=== PATIENT | male | born 1950 | race Hispanic/Latino ===

== ENCOUNTER 2018-02-27 19:15 | Inpatient (IN) | payer MEDICARE ==
[~2018-02-27] VITALS: Ht 170.2 cm; Wt 76.1 kg
[2018-02-27] MEDS ORDERED: ACETAMINOPHEN EXTRA STRENGTH 500 MG TABLET ONE (19:49)
[2018-02-27] MEDS ORDERED: SODIUM CHLORIDE 0.9% 1000ML 1,000 ML IV ONE (19:49)
[2018-02-27 20:17] LABS: EOSINOPHILS % (AUTO) 0.8 % (0.0-8.0); HEMATOCRIT 34.9 % (42-54); LYMPHOCYTES % (AUTO) 30.3 % (21.0-51.0); MEAN CORPUSCULAR HEMOGLOBIN 30.1 pg (27.0-33.0); MEAN CORPUSCULAR HGB CONC 35.1 g/dL (32.0-36.0); MEAN CORPUSCULAR VOLUME 85.8 fL (79-99); MONOCYTES % (AUTO) 15.9 % (3.0-13.0); NUCLEATED RED BLOOD CELLS 0.1 % (0.0-0.19); PLATELET COUNT (AUTO) 333 K/uL (130-400); RED BLOOD CELL COUNT(AUTO) 4.06 MIL/uL (4.50-6.20); RED CELL DISTRIBUTION WIDTH 12.6 % (11.0-15.5); WHITE BLOOD COUNT (AUTO) 8.5 K/uL (4.8-10.8)
[2018-02-27 20:28] LABS: CREATININE 1.4 mg/dL (0.5-1.5); POTASSIUM 3.7 mmol/L (3.5-5.1)
[2018-02-27 20:32] LABS: PARTIAL THROMBOPLASTIN TIME 29.8 SEC (26.3-35.5); PROTHROMBIN TIME 10.3 SEC (9.6-11.6)
[2018-02-27] MEDS ORDERED: CEFTRIAXONE SODIUM 1 GM ONE (20:37)
[2018-02-27] MEDS ORDERED: AZITHROMYCIN 500MG+NS 250ML 250 ML IV ONE (20:37)
[2018-02-27 20:41] LABS: ALBUMIN 2.9 g/dL (3.5-5.0); BILIRUBIN,TOTAL 0.2 mg/dL (0.2-1.0); CREATINE KINASE MB 1.4 ng/mL (0.5-3.6); TOTAL PROTEIN, SERUM 8.8 g/dL (6.0-8.3)
[2018-02-27 20:58] LABS: APPEARANCE,URINE Cloudy (CLEAR); BILIRUBIN,URINE Small (NEGATIVE); COLOR,URINE Dark Yellow (YELLOW); GLUCOSE, URINE (UA) TRACE mg/dL (NEGATIVE); KETONES,URINE Trace mg/dL (NEGATIVE); LEUKOCYTE ESTERASE ,URINE Negative (NEGATIVE); NITRATE,URINE Negative (NEGATIVE); OCCULT BLOOD,URINE Small (NEGATIVE); PROTEIN,URINE 300 (NEGATIVE)
[2018-02-27 21:14] LABS: BACTERIA,URINE None Seen /HPF (None Seen); MUCUS,URINE Few LPF (None Seen); RBC,URINE 0-1 /HPF (0-1); SQUAMOUS EPITHELIAL CELL,UR 0-2 /HPF (0-2); WBC,URINE None Seen /HPF (0-1)
[2018-02-27] MEDS ORDERED: DEXTROSE 50%-WATER 50 ML DISP.SYRIN IV PRN (21:45)
[2018-02-27] MEDS ORDERED: POTASSIUM CHLORIDE 20MEQ/100ML 100 ML IV PRN (21:45)
[2018-02-27] MEDS ORDERED: ONDANSETRON HCL 4 MG/2 ML VIAL IVP PRN (21:45)
[2018-02-27] MEDS ORDERED: POTASSIUM CHLORIDE 10% ELIXIR 20 MEQ/15 ML UDCUP PO PRN (21:45)
[2018-02-27] MEDS ORDERED: GLUCAGON 1MG KIT 1 MG ML IM PRN (21:45)
[2018-02-27] MEDS ORDERED: POTASSIUM CHLORIDE 20 MEQ ERTAB PO PRN (21:45)
[2018-02-27] MEDS ORDERED: LIDOCAINE HCL-MPF 1% 2ML VIAL IVP PRN (21:45)
[2018-02-27 23:55] VITALS: BP 124/67
[2018-02-28] MEDS: GUAIFENESIN SUGAR-FREE 100 MG/5 ML UDCUP PO SCH ×5 (00:50→23:37)
[2018-02-28] MEDS ORDERED: SODIUM CHLORIDE 3% FOR INHALATION 4 ML/AMP VIAL.NEB IH ONE (02:21)
[2018-02-28 04:26] VITALS: BP 141/74
[2018-02-28 07:00] VITALS: BP 134/69
[2018-02-28] MEDS: INSULIN HUMULIN R 100 UNIT/ML 3ML SQ SCH ×4 (07:30→20:34)
[2018-02-28] MEDS ORDERED: CEFTRIAXONE 1GM/D5W 50ML 50 ML IV SCH ×2 (09:00→14:00)
[2018-02-28] MEDS ORDERED: AZITHROMYCIN 500MG+NS 250ML 250 ML IV SCH (09:00)
[2018-02-28 11:00] VITALS: BP 120/65
[2018-02-28] MEDS ORDERED: VANCOMYCIN PROTOCOL PER PHARMACY IV SCH (12:00)
[2018-02-28] MEDS ORDERED: VANCOMYCIN 1GM+NS 250ML 250 ML IV SCH (12:00)
[2018-02-28] MEDS ORDERED: MEROPENEM 1GM IVPB PREMIXED 1 GM IV SCH (12:00)
[2018-02-28] MEDS ORDERED: COMPOUND IV REFRIGERATED 1 EACH IVSOLN MISC PRN (12:45)
[2018-02-28] MEDS ORDERED: VANCOMYCIN 1.25 GM in SODIUM CHLORIDE 0.9% 250 ML IV SCH (13:00)
[2018-02-28] MEDS ORDERED: MEROPENEM 1 GM VIAL IVP SCH (13:00)
[2018-02-28] MEDS ORDERED: ISOVUE-370 50ML VIAL IV ONE (13:21)
[2018-02-28] MEDS ORDERED: DOXYCYCLINE HYCLATE 100 MG TABLET PO SCH (14:00)
[2018-02-28] MEDS: CEFTRIAXONE SODIUM 1 GM IVP SCH (15:52)
[2018-02-28 16:00] VITALS: BP 132/75
[2018-02-28 17:17] LABS: HEMATOCRIT 36.5 % (42-54); MEAN CORPUSCULAR HEMOGLOBIN 30.1 pg (27.0-33.0); MEAN CORPUSCULAR VOLUME 86.1 fL (79-99); PLATELET COUNT (AUTO) 356 K/uL (130-400); RED BLOOD CELL COUNT(AUTO) 4.24 MIL/uL (4.50-6.20); RED CELL DISTRIBUTION WIDTH 12.7 % (11.0-15.5); WHITE BLOOD COUNT (AUTO) 8.3 K/uL (4.8-10.8)
[2018-02-28 17:24] LABS: CREATININE 1.1 mg/dL (0.5-1.5); POTASSIUM 3.8 mmol/L (3.5-5.1)
[2018-02-28 19:00] VITALS: BP 122/70
[2018-02-28] MEDS: ACETAMINOPHEN 325 MG TAB PO PRN (20:44)
[2018-02-28 22:00] VITALS: BP 110/64
[2018-03-01] VITALS (7 sets, daily range): BP systolic 118–135; BP diastolic 65–76
[2018-03-01 05:11] LABS: HEMATOCRIT 35.3 % (42-54); MEAN CORPUSCULAR HEMOGLOBIN 29.9 pg (27.0-33.0); MEAN CORPUSCULAR VOLUME 85.3 fL (79-99); PLATELET COUNT (AUTO) 309 K/uL (130-400); RED BLOOD CELL COUNT(AUTO) 4.14 MIL/uL (4.50-6.20); RED CELL DISTRIBUTION WIDTH 12.7 % (11.0-15.5); WHITE BLOOD COUNT (AUTO) 9.3 K/uL (4.8-10.8)
[2018-03-01 05:22] LABS: CREATININE 1.1 mg/dL (0.5-1.5); MAGNESIUM 1.8 mg/dL (1.80-2.40); POTASSIUM 3.8 mmol/L (3.5-5.1)
[2018-03-01] MEDS: GUAIFENESIN SUGAR-FREE 100 MG/5 ML UDCUP PO SCH ×3 (05:29→18:22)
[2018-03-01] MEDS: INSULIN HUMULIN R 100 UNIT/ML 3ML SQ SCH ×4 (05:54→20:56)
[2018-03-01] MEDS ORDERED: SODIUM CHLORIDE 3% FOR INHALATION 4 ML/AMP VIAL.NEB IH ONE (09:15)
[2018-03-01] MEDS: RIFAMPIN 300 MG CAPSULE PO SCH (10:05)
[2018-03-01] MEDS: PYRIDOXINE HCL 50 MG TABLET PO SCH (10:05)
[2018-03-01] MEDS: ETHAMBUTOL HCL 400 MG TABLET PO SCH (10:06)
[2018-03-01] MEDS: PYRAZINAMIDE 500 MG TABLET PO SCH (10:06)
[2018-03-01] MEDS: ISONIAZID 300 MG TAB PO SCH (10:06)
[2018-03-01] MEDS ORDERED: MAGNESIUM 2GM PREMIX 50ML 50 ML IV SCH (17:30)
[2018-03-01] MEDS: CEFTRIAXONE SODIUM 1 GM IVP SCH (18:22)
[2018-03-01] MEDS: ACETAMINOPHEN 325 MG TAB PO PRN (20:52)
[2018-03-02] MEDS: GUAIFENESIN SUGAR-FREE 100 MG/5 ML UDCUP PO SCH ×4 (00:06→17:00)
[2018-03-02 04:15] VITALS: BP 117/71
[2018-03-02 04:17] LABS: ALBUMIN 2.4 g/dL (3.5-5.0); BILIRUBIN,DIRECT 0.2 mg/dL (0.0-0.3); BILIRUBIN,TOTAL 0.7 mg/dL (0.2-1.0); TOTAL PROTEIN, SERUM 8.1 g/dL (6.0-8.3)
[2018-03-02] MEDS ORDERED: SODIUM CHLORIDE 3% FOR INHALATION 4 ML/AMP VIAL.NEB IH ONE (06:03)
[2018-03-02] MEDS: INSULIN HUMULIN R 100 UNIT/ML 3ML SQ SCH ×4 (06:32→22:48)
[2018-03-02 07:30] VITALS: BP 119/73
[2018-03-02] MEDS: PYRIDOXINE HCL 50 MG TABLET PO SCH (10:47)
[2018-03-02] MEDS: RIFAMPIN 300 MG CAPSULE PO SCH (10:47)
[2018-03-02] MEDS: PYRAZINAMIDE 500 MG TABLET PO SCH (10:47)
[2018-03-02] MEDS: ISONIAZID 300 MG TAB PO SCH (10:47)
[2018-03-02] MEDS: ETHAMBUTOL HCL 400 MG TABLET PO SCH (10:47)
[2018-03-02] MEDS: ENOXAPARIN SODIUM 40 MG/0.4 ML SYRINGE SQ SCH (10:49)
[2018-03-02 11:00] VITALS: BP 102/68
[2018-03-02] MEDS: CEFTRIAXONE SODIUM 1 GM IVP SCH (12:39)
[2018-03-02] MEDS ORDERED: VANCOMYCIN PROTOCOL PER PHARMACY IV SCH (14:00)
[2018-03-02] MEDS ORDERED: CEFTAZIDIME 1GM+NS 50ML 50 ML IV SCH (14:00)
[2018-03-02 16:00] VITALS: BP 118/71
[2018-03-02] MEDS ORDERED: VANCOMYCIN 1.5 GM in SODIUM CHLORIDE 0.9% 250 ML IV SCH (16:00)
[2018-03-02] MEDS ORDERED: COMPOUND IV REFRIGERATED 1 EACH IVSOLN MISC PRN (16:00)
[2018-03-02] MEDS: CEFTAZIDIME PENTAHYDRATE 1 GM/VIAL IVP SCH ×2 (16:52→22:43)
[2018-03-02 20:14] VITALS: BP 128/71
[2018-03-02 23:30] VITALS: BP 132/79
[2018-03-03] MEDS: GUAIFENESIN SUGAR-FREE 100 MG/5 ML UDCUP PO SCH ×4 (00:09→17:28)
[2018-03-03] MEDS ORDERED: SODIUM CHLORIDE 3% FOR INHALATION 4 ML/AMP VIAL.NEB IH ONE (00:18)
[2018-03-03 04:05] VITALS: BP 136/72
[2018-03-03] MEDS: CEFTAZIDIME PENTAHYDRATE 1 GM/VIAL IVP SCH ×2 (06:19→15:21)
[2018-03-03] MEDS: INSULIN HUMULIN R 100 UNIT/ML 3ML SQ SCH ×4 (06:20→21:00)
[2018-03-03 08:00] VITALS: BP_SYST 130; BP_SYST 158; BP_DIAS 70; BP_DIAS 77
[2018-03-03] MEDS ORDERED: VANCOMYCIN 500MG+NS 100ML 100 ML IV SCH (09:00)
[2018-03-03] MEDS: PYRIDOXINE HCL 50 MG TABLET PO SCH (10:17)
[2018-03-03] MEDS: ISONIAZID 300 MG TAB PO SCH (10:17)
[2018-03-03] MEDS: RIFAMPIN 300 MG CAPSULE PO SCH (10:18)
[2018-03-03] MEDS: ETHAMBUTOL HCL 400 MG TABLET PO SCH (10:18)
[2018-03-03] MEDS: PYRAZINAMIDE 500 MG TABLET PO SCH (10:18)
[2018-03-03] MEDS: VANCOMYCIN 750MG + NS 250 ML IV SCH ×4 (10:19→22:05)
[2018-03-03] MEDS: ENOXAPARIN SODIUM 40 MG/0.4 ML SYRINGE SQ SCH (10:20)
[2018-03-03 11:00] VITALS: BP 131/69
[2018-03-03 16:00] VITALS: BP 116/63
[2018-03-03 19:20] VITALS: BP 121/69
[2018-03-03 23:30] VITALS: BP 114/77
[2018-03-04] MEDS: CEFTAZIDIME PENTAHYDRATE 1 GM/VIAL IVP SCH ×3 (00:17→16:59)
[2018-03-04] MEDS: GUAIFENESIN SUGAR-FREE 100 MG/5 ML UDCUP PO SCH ×4 (00:17→17:07)
[2018-03-04 03:30] VITALS: BP 112/68
[2018-03-04 04:54] LABS: CREATININE 1.3 mg/dL (0.5-1.5); MAGNESIUM 1.8 mg/dL (1.80-2.40); POTASSIUM 3.9 mmol/L (3.5-5.1)
[2018-03-04] MEDS: INSULIN HUMULIN R 100 UNIT/ML 3ML SQ SCH ×4 (05:57→21:53)
[2018-03-04] MEDS: VANCOMYCIN 750MG + NS 250 ML IV SCH ×4 (09:00→10:48)
[2018-03-04] MEDS: ENOXAPARIN SODIUM 40 MG/0.4 ML SYRINGE SQ SCH (10:46)
[2018-03-04] MEDS: ETHAMBUTOL HCL 400 MG TABLET PO SCH (10:47)
[2018-03-04] MEDS: PYRAZINAMIDE 500 MG TABLET PO SCH (10:47)
[2018-03-04] MEDS: PYRIDOXINE HCL 50 MG TABLET PO SCH (10:47)
[2018-03-04] MEDS: ISONIAZID 300 MG TAB PO SCH (10:47)
[2018-03-04] MEDS: RIFAMPIN 300 MG CAPSULE PO SCH (10:48)
[2018-03-04 11:52] VITALS: BP 118/69
[2018-03-04] MEDS: VANCOMYCIN 1GM+NS 250ML IV SCH ×2 (12:40→21:51)
[2018-03-04 12:46] VITALS: BP 145/84
[2018-03-04 16:00] VITALS: BP 117/7
[2018-03-04 20:00] VITALS: BP 114/66
[2018-03-05] VITALS: BP 109/66
[2018-03-05] MEDS: CEFTAZIDIME PENTAHYDRATE 1 GM/VIAL IVP SCH ×4 (00:31→23:43)
[2018-03-05] MEDS: GUAIFENESIN SUGAR-FREE 100 MG/5 ML UDCUP PO SCH ×5 (00:31→23:43)
[2018-03-05 04:00] VITALS: BP 123/67
[2018-03-05] MEDS: INSULIN HUMULIN R 100 UNIT/ML 3ML SQ SCH ×4 (06:56→21:00)
[2018-03-05 08:00] VITALS: BP 136/73
[2018-03-05] MEDS: VANCOMYCIN 1GM+NS 250ML IV SCH ×2 (10:02→22:14)
[2018-03-05] MEDS: ETHAMBUTOL HCL 400 MG TABLET PO SCH (10:03)
[2018-03-05] MEDS: ENOXAPARIN SODIUM 40 MG/0.4 ML SYRINGE SQ SCH (10:03)
[2018-03-05] MEDS: PYRAZINAMIDE 500 MG TABLET PO SCH (10:04)
[2018-03-05] MEDS: ISONIAZID 300 MG TAB PO SCH (10:05)
[2018-03-05] MEDS: PYRIDOXINE HCL 50 MG TABLET PO SCH (10:05)
[2018-03-05] MEDS: RIFAMPIN 300 MG CAPSULE PO SCH (10:05)
[2018-03-05 11:54] VITALS: BP 116/66
[2018-03-05 16:00] VITALS: BP 123/71
[2018-03-05 19:00] VITALS: BP 125/70
[2018-03-06] VITALS: BP 125/66
[2018-03-06 04:00] VITALS: BP 123/70
[2018-03-06] MEDS: GUAIFENESIN SUGAR-FREE 100 MG/5 ML UDCUP PO SCH (06:10)
[2018-03-06] MEDS: INSULIN HUMULIN R 100 UNIT/ML 3ML SQ SCH ×4 (06:32→21:19)
[2018-03-06] MEDS ORDERED: GUAIFENESIN SUGAR-FREE 100 MG/5 ML UDCUP PO PRN (07:45)
[2018-03-06 08:00] VITALS: BP 122/70
[2018-03-06] MEDS: CEFTAZIDIME PENTAHYDRATE 1 GM/VIAL IVP SCH ×3 (08:16→23:13)
[2018-03-06] MEDS: VANCOMYCIN 1GM+NS 250ML IV SCH ×2 (09:29→20:35)
[2018-03-06] MEDS: ISONIAZID 300 MG TAB PO SCH (09:30)
[2018-03-06] MEDS: PYRIDOXINE HCL 50 MG TABLET PO SCH (09:30)
[2018-03-06] MEDS: PYRAZINAMIDE 500 MG TABLET PO SCH (09:30)
[2018-03-06] MEDS: RIFAMPIN 300 MG CAPSULE PO SCH (09:30)
[2018-03-06] MEDS: ETHAMBUTOL HCL 400 MG TABLET PO SCH (09:31)
[2018-03-06] MEDS: ENOXAPARIN SODIUM 40 MG/0.4 ML SYRINGE SQ SCH (09:32)
[2018-03-06 11:18] VITALS: BP 131/73
[2018-03-06 15:54] VITALS: BP 117/68
[2018-03-06 19:00] VITALS: BP 129/68
[2018-03-07] VITALS: BP 123/63
[2018-03-07 04:00] VITALS: BP 134/73
[2018-03-07 05:47] LABS: HEMATOCRIT 34.3 % (42-54); MEAN CORPUSCULAR HEMOGLOBIN 29.9 pg (27.0-33.0); MEAN CORPUSCULAR HGB CONC 34.4 g/dL (32.0-36.0); MEAN CORPUSCULAR VOLUME 87.1 fL (79-99); PLATELET COUNT (AUTO) 422 K/uL (130-400); RED BLOOD CELL COUNT(AUTO) 3.94 MIL/uL (4.50-6.20); RED CELL DISTRIBUTION WIDTH 13.2 % (11.0-15.5); WHITE BLOOD COUNT (AUTO) 9.3 K/uL (4.8-10.8)
[2018-03-07 05:58] LABS: ALBUMIN 2.3 g/dL (3.5-5.0); BILIRUBIN,TOTAL 0.3 mg/dL (0.2-1.0); CREATININE 1.1 mg/dL (0.5-1.5); POTASSIUM 3.8 mmol/L (3.5-5.1); TOTAL PROTEIN, SERUM 7.6 g/dL (6.0-8.3)
[2018-03-07] MEDS: CEFTAZIDIME PENTAHYDRATE 1 GM/VIAL IVP SCH ×3 (06:06→23:02)
[2018-03-07] MEDS: INSULIN HUMULIN R 100 UNIT/ML 3ML SQ SCH ×4 (06:34→20:35)
[2018-03-07 08:00] VITALS: BP 115/69
[2018-03-07] MEDS: PYRAZINAMIDE 500 MG TABLET PO SCH (10:37)
[2018-03-07] MEDS: ETHAMBUTOL HCL 400 MG TABLET PO SCH (10:37)
[2018-03-07] MEDS: RIFAMPIN 300 MG CAPSULE PO SCH (10:37)
[2018-03-07] MEDS: ISONIAZID 300 MG TAB PO SCH (10:37)
[2018-03-07] MEDS: PYRIDOXINE HCL 50 MG TABLET PO SCH (10:37)
[2018-03-07] MEDS: ENOXAPARIN SODIUM 40 MG/0.4 ML SYRINGE SQ SCH (10:38)
[2018-03-07] MEDS: VANCOMYCIN 1GM+NS 250ML IV SCH ×2 (10:51→20:28)
[2018-03-07 11:00] VITALS: BP_SYST 113; BP_SYST 129; BP_DIAS 70; BP_DIAS 75
[2018-03-07 16:00] VITALS: BP 109/69
[2018-03-07 19:52] VITALS: BP 137/76
[2018-03-08 00:01] VITALS: BP 117/67
[2018-03-08] MEDS: CEFTAZIDIME PENTAHYDRATE 1 GM/VIAL IVP SCH (06:02)
[2018-03-08] MEDS: INSULIN HUMULIN R 100 UNIT/ML 3ML SQ SCH ×2 (06:15→12:21)
[2018-03-08] MEDS: RIFAMPIN 300 MG CAPSULE PO SCH (09:21)
[2018-03-08] MEDS: ISONIAZID 300 MG TAB PO SCH (09:21)
[2018-03-08] MEDS: ETHAMBUTOL HCL 400 MG TABLET PO SCH (09:21)
[2018-03-08] MEDS: PYRAZINAMIDE 500 MG TABLET PO SCH (09:21)
[2018-03-08] MEDS: PYRIDOXINE HCL 50 MG TABLET PO SCH (09:21)
[2018-03-08] MEDS: ENOXAPARIN SODIUM 40 MG/0.4 ML SYRINGE SQ SCH (09:22)
[2018-03-08] MEDS: VANCOMYCIN 1GM+NS 250ML IV SCH (09:22)
[2018-03-08 09:29] VITALS: BP 103/83
[2018-03-08 11:00] VITALS: BP 134/75
[2018-03-08] MEDS ORDERED: ACET-2247 PO (12:16)
[2018-03-08] MEDS ORDERED: GUAI100L26 PO (12:16)
== END 2018-03-08 17:00 | disposition home or self-care (01) | DRG 178 ==
LOC: EDH 19:15 → EDHIP 21:15 → 3AH 23:03
PROVIDERS: ADMIT Family Medicine; ATTEND Family Medicine
DX: A15.0 Tuberculosis of lung (principal); R04.2 Hemoptysis; E44.0 Moderate protein-calorie malnutrition; A31.9 Mycobacterial infection, unspecified; E11.9 Type 2 diabetes mellitus without complications; I10 Essential (primary) hypertension; J15.9 Unspecified bacterial pneumonia; Z79.84 Long term (current) use of oral hypoglycemic drugs; Z68.26 Body mass index [BMI] 26.0-26.9, adult; Z28.21 Immunization not carried out because of patient refusal
CPT/HCPCS: 36415; 71045; 71260; 80048; 80053; 80076; 80202; 81001; 82550; 82553; 82948; 83605; 83735; 84100; 84484; 85025; 85027; 85610; 85730; 86480; 87040; 87071; 87106; 87116; 87190; 87205; 87206; 87556; 87633; 93005; 94640; A4218; J0456; J0696; J0713; J1650; J1815; J2185; J3370; J7030; Q9967

== ENCOUNTER 2020-06-22 19:55 | Inpatient (IN) | payer MEDICARE ==
[~2020-06-22] VITALS: Ht 157.5 cm; Wt 77.6 kg
[~2020-06-22 19:55] MED LIST: ACET-2247 PO; GUAI100L26 PO
[2020-06-22 20:45] LABS: ABG BASE EXCESS -0.2 mmol/L (-2.0-3.0); ABG HCO3 22.6 mmol/L (21.0-28.0); ABG OXYGEN SATURATION 86.5 % (95.0-99.0); ABG PCO2 32 mmHg (35-48)
[2020-06-22] MEDS ORDERED: DEXAMETHASONE SOD PHOSPHATE 10MG/ML 1ML VIAL ONE (20:45)
[2020-06-22] MEDS ORDERED: CEFTRIAXONE SODIUM 2 GM VIAL ONE (20:46)
[2020-06-22] MEDS ORDERED: SODIUM CHLORIDE 0.9% 50 ML IV ONE (20:47)
[2020-06-22 20:52] LABS: BASOPHILS % (AUTO) 0.2 % (0.0-5.0); HEMATOCRIT 37.7 % (42-54); LYMPHOCYTES % (AUTO) 4.1 % (21.0-51.0); MEAN CORPUSCULAR HEMOGLOBIN 30.2 pg (27.0-33.0); MEAN CORPUSCULAR HGB CONC 34.5 g/dL (32.0-36.0); MEAN CORPUSCULAR VOLUME 87.5 fL (79-99); MONOCYTES % (AUTO) 2.6 % (3.0-13.0); NEUTROPHILS % (AUTO) 91.3 % (40.0-77.0); NUCLEATED RED BLOOD CELLS 0.2 % (0.0-0.19); PLATELET COUNT (AUTO) 381 K/uL (130-400); RED BLOOD CELL COUNT(AUTO) 4.31 MIL/uL (4.50-6.20); WHITE BLOOD COUNT (AUTO) 18.4 K/uL (4.8-10.8)
[2020-06-22] MEDS ORDERED: AZITHROMYCIN 500MG+NS 250ML 250 ML IV ONE (20:56)
[2020-06-22 21:20] LABS: INR 1.04 (0.85-1.15); PARTIAL THROMBOPLASTIN TIME 25.8 SEC (26.3-35.5); PROTHROMBIN TIME 11.2 SEC (9.6-11.6)
[2020-06-22 21:33] LABS: B-TYPE NATRIURETIC PEPTIDE 149 pg/mL (0-100)
[2020-06-22 21:36] LABS: ALBUMIN 2.2 g/dL (3.5-5.0); BILIRUBIN,TOTAL 0.6 mg/dL (0.2-1.0); CREATININE 1.6 mg/dL (0.5-1.5); POTASSIUM 4.6 mmol/L (3.5-5.1); TOTAL PROTEIN, SERUM 8.1 g/dL (6.0-8.3)
[2020-06-22 22:00] LABS: APPEARANCE,URINE Clear (CLEAR); BILIRUBIN,URINE Negative (NEGATIVE); COLOR,URINE Yellow (YELLOW); GLUCOSE, URINE (UA) >=1000 mg/dL (NEGATIVE); KETONES,URINE Negative (NEGATIVE); LEUKOCYTE ESTERASE ,URINE Negative (NEGATIVE); NITRATE,URINE Negative (NEGATIVE); OCCULT BLOOD,URINE Trace (NEGATIVE); PROTEIN,URINE POS 1+ mg/dL (NEGATIVE)
[2020-06-22 22:08] LABS: COARSE GRANULAR CASTS,URINE 0-2 /LPF (None Seen); HYALINE CASTS, URINE 0-1 /LPF (0-1 /LPF); RBC,URINE 0-1 /HPF (0-1); SQUAMOUS EPITHELIAL CELL,UR Rare /HPF (0-2); WBC,URINE 0-1 /HPF (0-1)
[2020-06-22 22:09] LABS: BACTERIA,URINE Few /HPF (None Seen)
[2020-06-22] MEDS ORDERED: IOHEXOL-350 75 ML VIAL IV ONE (23:03)
[2020-06-22] MEDS: SODIUM CHLORIDE 0.9% 1000ML 1,000 ML IV SCH (23:15)
[2020-06-22] MEDS ORDERED: ERGOCALCIFEROL (VITAMIN D2) 50,000 UNIT CAPSULE PO ONE (23:15)
[2020-06-22] MEDS ORDERED: HYDRALAZINE HCL 20 MG/ML VIAL IV PRN (23:15)
[2020-06-22] MEDS ORDERED: ONDANSETRON HCL 4 MG/2 ML VIAL IV PRN (23:15)
[2020-06-23] MEDS ORDERED: DOXYCYCLINE 100MG+NS 250ML 250 ML IV ONE (00:39)
[2020-06-23] MEDS ORDERED: ALBUTEROL INHALER 90MCG/INH IH PRN (02:00)
[2020-06-23 02:45] VITALS: BP 140/75
--- NOTE | 2020-06-23 02:45 | NUR ---
Patient arrived on unit. Denies pain. Does have sob with exertion. Currently on hi jose elias 50L at 100% and NRB at 80%. O2 sats 92-96%. Alert and oriented. Oriented to environment, call light within reach.
[2020-06-23] MEDS: SODIUM CHLORIDE 0.9% 1000ML 1,000 ML IV SCH ×3 (03:00→09:15)
[2020-06-23 04:30] VITALS: BP 136/97
--- NOTE | 2020-06-23 05:30 | NUR ---
Patient blood sugar 312. Informed Dr Eastman and she will start pt on sliding scale. Per MD consult Pulmonary.
[2020-06-23] MEDS: METHYLPREDNISOLONE SOD SUCC 40MG/ML 1ML IVP SCH ×3 (05:44→21:55)
[2020-06-23] MEDS ORDERED: INSULIN LISPRO 100 UNIT/ML 3ML SQ SCH (07:30)
[2020-06-23 07:31] LABS: BASOPHILS % (AUTO) 0.1 % (0.0-5.0); HEMATOCRIT 34.3 % (42-54); LYMPHOCYTES % (AUTO) 4.1 % (21.0-51.0); MEAN CORPUSCULAR HEMOGLOBIN 30.2 pg (27.0-33.0); MEAN CORPUSCULAR HGB CONC 34.4 g/dL (32.0-36.0); MEAN CORPUSCULAR VOLUME 87.7 fL (79-99); NEUTROPHILS % (AUTO) 92.3 % (40.0-77.0); PLATELET COUNT (AUTO) 346 K/uL (130-400); RED BLOOD CELL COUNT(AUTO) 3.91 MIL/uL (4.50-6.20); RED CELL DISTRIBUTION WIDTH 13.1 % (11.0-15.5); WHITE BLOOD COUNT (AUTO) 13.3 K/uL (4.8-10.8)
[2020-06-23 08:51] LABS: ALBUMIN 1.8 g/dL (3.5-5.0); BILIRUBIN,TOTAL 0.4 mg/dL (0.2-1.0); CREATININE 1.2 mg/dL (0.5-1.5); POTASSIUM 4.9 mmol/L (3.5-5.1); TOTAL PROTEIN, SERUM 6.9 g/dL (6.0-8.3)
[2020-06-23] MEDS: ASPIRIN 325 MG TABLET PO SCH (08:58)
[2020-06-23] MEDS: ZINC SULFATE 220 CAPSULE PO SCH (08:59)
[2020-06-23] MEDS: ACETYLCYSTEINE 600 MG CAPSULE PO SCH ×2 (08:59→21:54)
[2020-06-23] MEDS: ENOXAPARIN SODIUM 40 MG/0.4 ML SYRINGE SQ SCH (08:59)
[2020-06-23] MEDS: BENZONATATE 100 MG CAPSULE PO SCH ×3 (08:59→21:54)
[2020-06-23] MEDS: ASCORBIC ACID 500 MG TAB PO SCH (08:59)
[2020-06-23 09:00] VITALS: BP 138/69
--- NOTE | 2020-06-23 09:00 | NUR ---
AM ASSESSMENT PT AWAKE AND ALERT, O2 PER HIGH FLOW NC AND NON-REBREATHER. O2 SAT 90-91%. ASSISTANCE WITH ADLS.
[2020-06-23 09:24] LABS: CRP QUANTITATIVE 153.8 mg/L (0.00-9.0)
[2020-06-23 11:45] VITALS: BP 115/74
[2020-06-23] MEDS: DOXYCYCLINE 100MG+NS 250ML 250 ML IV SCH (12:19)
[2020-06-23] MEDS: INSULIN LISPRO 100 UNIT/ML 3ML SQ SCH ×5 (13:28→21:53)
[2020-06-23 16:00] VITALS: BP 116/74
[2020-06-23] MEDS ORDERED: PHARMACY COMMUNICATION MISC SCH (18:15)
--- NOTE | 2020-06-23 18:15 | NUR ---
PLASMA PT AWAKE, ALERT, AND ORIENTED. MADE AWARE AND EDUCATED ON CONVALESCENT PLASMA ORDERED; PT STATES WILL REFUSE PLASMA. PT MADE AWARE IF CHANGES MIND TO LET STAFF KNOW. O2 SAT 89-92%, PT ENCOURAGED TO PRONE.
[2020-06-23 20:00] VITALS: BP 132/81
[2020-06-23] MEDS ORDERED: COMPOUND IV REFRIGERATED 1 EACH IVSOLN MISC PRN (20:00)
[2020-06-23] MEDS ORDERED: REMDESIVIR (EUA) 520 200 MG in SODIUM CHLORIDE 0.9% 250 ML IV ONE (20:00)
[2020-06-23] MEDS: INSULIN GLARGINE 100 UNITS/ML 10 ML VIAL SQ SCH (21:52)
[2020-06-23] MEDS: AZITHROMYCIN 500MG+NS 250ML 250 ML IV SCH (21:55)
[2020-06-24] VITALS (7 sets, daily range): BP systolic 123–145; BP diastolic 71–85
[2020-06-24] MEDS: DOXYCYCLINE 100MG+NS 250ML 250 ML IV SCH (01:12)
--- NOTE | 2020-06-24 05:00 | NUR ---
STATUS PT OXYGEN DESATURATED EARLIER THIS EVENING. POSITIONED PATIENT PRONE. PATIENT TOLERATED PRONE ABOUT 3.5 HRS BEFORE PATIENT SELF TURNED ONTO SIDE. PATIENT SATURATION 91% ON LEFT SIDE.
[2020-06-24] MEDS: METHYLPREDNISOLONE SOD SUCC 40MG/ML 1ML IVP SCH ×3 (05:02→21:56)
[2020-06-24] MEDS: PHARMACY COMMUNICATION MISC SCH (06:00)
[2020-06-24] MEDS: INSULIN LISPRO 100 UNIT/ML 3ML SQ SCH ×7 (06:05→22:02)
[2020-06-24 06:25] LABS: BASOPHILS % (AUTO) 0.2 % (0.0-5.0); HEMATOCRIT 37.8 % (42-54); LYMPHOCYTES % (AUTO) 4.5 % (21.0-51.0); MEAN CORPUSCULAR HEMOGLOBIN 29.9 pg (27.0-33.0); MEAN CORPUSCULAR HGB CONC 33.3 g/dL (32.0-36.0); MEAN CORPUSCULAR VOLUME 89.6 fL (79-99); MONOCYTES % (AUTO) 3.8 % (3.0-13.0); NEUTROPHILS % (AUTO) 89.9 % (40.0-77.0); PLATELET COUNT (AUTO) 430 K/uL (130-400); RED BLOOD CELL COUNT(AUTO) 4.22 MIL/uL (4.50-6.20); RED CELL DISTRIBUTION WIDTH 13.2 % (11.0-15.5)
[2020-06-24 06:38] LABS: BILIRUBIN,TOTAL 0.7 mg/dL (0.2-1.0); CREATININE 1.1 mg/dL (0.5-1.5); CRP QUANTITATIVE 107.7 mg/L (0.00-9.0); POTASSIUM 4.5 mmol/L (3.5-5.1); TOTAL PROTEIN, SERUM 7.6 g/dL (6.0-8.3)
[2020-06-24 06:55] LABS: HEMOGLOBIN A1C 9.8 % (4.0-6.0)
--- NOTE | 2020-06-24 08:18 | NUR ---
IA- SPOKE W DAUGHTER FOR DC PLANNING PHONE NUMBER ON FACE SHEET BELONGS TO G/SON; FACE SHEET UPDATE- PATIENT LIVES W FAMILY- SON/DAUGHTER IN LAW DRAKE ON FACE SHEET. STATES PATIENT IS ACTIVE, INDEPENDENT, HAS NO DME, STILL WORKING ALTHOUGH 'RETIRED'; STATES FAMILY WILL PROVIDE TRANSPORT; PATIENT IS RARELY SICK, GOES OT MD'S IN [place] OR AT DROP IN CLINICS IF NEED- HAS USED [facility] IN THE PAST. DCP IS HOME. FAMILY UPDATED ON PLAN OF CARE, DENIES OTHERS WITH SYMPTOMS AT THE HOUSE. Addendum: 06/24/20 at 0825 by DANIELLA LEHMAN RN CM Amended: Links added.
--- NOTE | 2020-06-24 09:30 | NUR ---
ASSESSMENT ENCOUNTERED PT IN HIGH DODSON'S POSITION, A&OX3, CALM COOPERATIVE AND DOES NOT APPEAR TO BE IN ANY DISTRESS NOR ANY NEURO DEFICITS PRESENT. PT DENIES PAIN, DIZZINESS OR NAUSEA BUT DOES C/O DYSPNEA ON EXERTION. PT IS ABLE TO TOLERATE FOODS, FLUIDS AND MEDICATION WITH NO THROAT CLEARING OR COUGH. PT ON HIGH FLOW O2 50LNC WITH NON REBREATHER MASK AND CONTINUOUS PULSE OXIMETRY WITH SATS 90-91%. INFORMED PT TO REMAIN IN HIGH DODSON'S AND REPOSITION TO RT TOLERATED, CALL LIGHT WITHIN REACH.
[2020-06-24] MEDS: ASPIRIN 325 MG TABLET PO SCH (09:46)
[2020-06-24] MEDS: ENOXAPARIN SODIUM 40 MG/0.4 ML SYRINGE SQ SCH (09:47)
[2020-06-24] MEDS: BENZONATATE 100 MG CAPSULE PO SCH ×3 (09:47→21:56)
[2020-06-24] MEDS: ACETYLCYSTEINE 600 MG CAPSULE PO SCH ×2 (09:47→21:56)
[2020-06-24] MEDS: ZINC SULFATE 220 CAPSULE PO SCH (09:47)
[2020-06-24] MEDS: ASCORBIC ACID 500 MG TAB PO SCH (09:47)
[2020-06-24] MEDS ORDERED: SODIUM CHLORIDE 0.9% 250 ML IV ONE (09:50)
[2020-06-24] MEDS ORDERED: REMDESIVIR (EUA) 520 200 MG in SODIUM CHLORIDE 0.9% 250 ML IV SCH (11:15)
[2020-06-24] MEDS ORDERED: REMDESIVIR (EUA) 520 200 MG in SODIUM CHLORIDE 0.9% 250 ML IV ONE (12:00)
[2020-06-24] MEDS ORDERED: REMDESIVIR (EUA) 520 100 MG in SODIUM CHLORIDE 0.9% 250 ML IV SCH (20:00)
[2020-06-24] MEDS: DOXYCYCLINE HYCLATE 100 MG TABLET PO SCH (21:56)
[2020-06-24] MEDS: AZITHROMYCIN 500MG+NS 250ML 250 ML IV SCH (21:56)
[2020-06-24] MEDS: INSULIN GLARGINE 100 UNITS/ML 10 ML VIAL SQ SCH (22:03)
[2020-06-25] MEDS: ENOXAPARIN SODIUM 40 MG/0.4 ML SYRINGE SQ SCH ×3 (00:35→21:26)
[2020-06-25 03:27] VITALS: BP 124/75
[2020-06-25 05:02] LABS: BASOPHILS % (AUTO) 0.1 % (0.0-5.0); HEMATOCRIT 34.5 % (42-54); LYMPHOCYTES % (AUTO) 3.8 % (21.0-51.0); MEAN CORPUSCULAR HEMOGLOBIN 30.3 pg (27.0-33.0); MEAN CORPUSCULAR HGB CONC 34.2 g/dL (32.0-36.0); MEAN CORPUSCULAR VOLUME 88.7 fL (79-99); MONOCYTES % (AUTO) 2.5 % (3.0-13.0); NEUTROPHILS % (AUTO) 92.8 % (40.0-77.0); PLATELET COUNT (AUTO) 381 K/uL (130-400); RED BLOOD CELL COUNT(AUTO) 3.89 MIL/uL (4.50-6.20); WHITE BLOOD COUNT (AUTO) 12.2 K/uL (4.8-10.8)
[2020-06-25 05:54] LABS: ALBUMIN 1.8 g/dL (3.5-5.0); BILIRUBIN,TOTAL 0.6 mg/dL (0.2-1.0); CRP QUANTITATIVE 53.5 mg/L (0.00-9.0); POTASSIUM 4.5 mmol/L (3.5-5.1); TOTAL PROTEIN, SERUM 6.6 g/dL (6.0-8.3)
[2020-06-25] MEDS: INSULIN LISPRO 100 UNIT/ML 3ML SQ SCH ×7 (06:27→21:37)
[2020-06-25 08:08] VITALS: BP 138/87
[2020-06-25] MEDS: DOXYCYCLINE HYCLATE 100 MG TABLET PO SCH ×2 (08:48→21:25)
[2020-06-25] MEDS: ZINC SULFATE 220 CAPSULE PO SCH (08:48)
[2020-06-25] MEDS: ASCORBIC ACID 500 MG TAB PO SCH (08:48)
[2020-06-25] MEDS: ASPIRIN 325 MG TABLET PO SCH (08:48)
[2020-06-25] MEDS: BENZONATATE 100 MG CAPSULE PO SCH ×3 (08:48→21:26)
[2020-06-25] MEDS: ACETYLCYSTEINE 600 MG CAPSULE PO SCH ×2 (08:49→21:00)
[2020-06-25] MEDS: DEXAMETHASONE SOD PHOSPHATE 4 MG/ML 1ML VIAL IVP SCH (09:14)
--- NOTE | 2020-06-25 10:05 | NUR ---
RESTING IN SEMI-PRONE POSITION. RESP.'S EVEN AND UNLABORED. O2 SAT-97%, P-92, PER CONTINUOUS PULSE OXIMETER AT BEDSIDE. CALL LIGHT WITHIN REACH. ROOM BLINDS OPEN.
--- NOTE | 2020-06-25 11:12 | NUR ---
RECEIVED CALL FROM DRAKE SMITH, [id number], PER HERSELF. UPDATED ON STATUS AND QUESTIONS ANSWERED, VERBALIZED UNDERSTANDING.
[2020-06-25] MEDS ORDERED: REMDESIVIR (EUA) 520 100 MG in SODIUM CHLORIDE 0.9% 250 ML IV SCH (12:00)
--- NOTE | 2020-06-25 12:10 | NUR ---
RESTING IN BED IN PRONE POSITION, RESP.'S EVEN AND UNLABORED. O2 SAT-98%, P-91, PER CONTINUOUS PULSE OXIMETER AT BEDSIDE. CALL LIGHT WITHIN REACH.
[2020-06-25 12:21] VITALS: BP 143/83
--- NOTE | 2020-06-25 13:07 | NUR ---
RD NOTIFICATION - SEVERE CALORIC MALNUTRITION Pt admitted with ARF, Positive COVID-19. Tolerating Heart Healthy diet order with Fair PO intake, no report of GI distress, although some poor appetite. WBC 12.2, BG 265, Alb 1.8. Recommend 60gm CCD diet modification Recommend 60ml ProMod BID RD to continue to monitor. Please notify as additional nutrition concerns arise. Thank you.
--- NOTE | 2020-06-25 14:25 | NUR ---
SITTING UP IN BED WITH HOB AT SEMI-DODSON'S POSITION; O2 SAT-92% PER CONTINUOUS PULSE OXIMETER AT BEDSIDE. ASSISTED TO TURN TO PRONE POSITION. NRB AND HI-FLOW N/C IN PLACE. CONTINUOUS PULSE OXIMETER IN PLACE. CALL LIGHT WITHIN REACH, VERBALIZED ABILITY TO USE. BED PLACED IN REVERSE [place] POSITION. BLINDS OPEN.
--- NOTE | 2020-06-25 15:06 | NUR ---
RESTING IN BED, RESP.'S EVEN AND UNLABORED. O2 SAT-99%, P-82, PER CONTINUOUS PULSE OX. AT BEDSIDE. BED IN REVERSE [place] POSITION. CALL LIGHT WITHIN REACH. ROOM BLINDS OPEN.
[2020-06-25 15:45] VITALS: BP 128/72
--- NOTE | 2020-06-25 16:18 | NUR ---
PT. CONTINUES IN PRONE POSITION. O2 SAT-99%, P-83. CALL LIGHT WITHIN REACH.
[2020-06-25 20:00] VITALS: BP 128/75
--- NOTE | 2020-06-25 21:00 | NUR ---
PRONING PATIENT ASSISTED TO SELF PRONE. DUE ACTIVITY INTOLERANCE O2 SATS DECREASED INTO THE 70'S. PATIENT QUICKLY RECOVERED AND O2 SATS INCREASED INTO THE HIGH 90'S.
[2020-06-25] MEDS: AZITHROMYCIN 500MG+NS 250ML 250 ML IV SCH (21:25)
[2020-06-25] MEDS: INSULIN GLARGINE 100 UNITS/ML 10 ML VIAL SQ SCH (21:35)
[2020-06-26] VITALS (7 sets, daily range): BP systolic 113–134; BP diastolic 53–76
--- NOTE | 2020-06-26 04:15 | NUR ---
SUPINE PATIENT WAS FOUND WITH O2 SATURATIONS IN THE HIGH 60'S, TANGLED IN MEDICAL EQUIPMENT, TRYING TO GET HIMSELF IN THE SUPINE POSITION. ASSISTED PATIENT BACK TO THE SUPINE POSITION. READJUSTED MEDICAL EQUIPMENT TO PREVENT PRESSURE INJURY. AFTER 15 -20 MINUTES PATIENTS O2 SATURATIONS RETURNED TO THE LOW 90'S. WITH THE HELP OF CITIZEN OF [place] SPEAKING STAFF, INSTRUCTED PATIENT ON THE IMPORTANCE OF ASKING FOR HELP, BREATHING TECHNIQUES, RELAXATION TECHNIQUES AND THE IMPORTANCE OF PRONING. PATIENT EXPRESSED UNDERSTANDING.
[2020-06-26 06:12] LABS: BASOPHILS % (AUTO) 0.1 % (0.0-5.0); EOSINOPHILS % (AUTO) 0.2 % (0.0-8.0); HEMATOCRIT 39.9 % (42-54); LYMPHOCYTES % (AUTO) 3.3 % (21.0-51.0); MEAN CORPUSCULAR HGB CONC 33.3 g/dL (32.0-36.0); MEAN CORPUSCULAR VOLUME 89.9 fL (79-99); MONOCYTES % (AUTO) 2.5 % (3.0-13.0); NEUTROPHILS % (AUTO) 93.2 % (40.0-77.0); PLATELET COUNT (AUTO) 463 K/uL (130-400); RED BLOOD CELL COUNT(AUTO) 4.44 MIL/uL (4.50-6.20); WHITE BLOOD COUNT (AUTO) 16.7 K/uL (4.8-10.8)
[2020-06-26 06:24] LABS: ALBUMIN 2.1 g/dL (3.5-5.0); BILIRUBIN,TOTAL 0.9 mg/dL (0.2-1.0); CREATININE 1.1 mg/dL (0.5-1.5); CRP QUANTITATIVE 72.1 mg/L (0.00-9.0); POTASSIUM 4.2 mmol/L (3.5-5.1); TOTAL PROTEIN, SERUM 7.2 g/dL (6.0-8.3)
[2020-06-26] MEDS: INSULIN LISPRO 100 UNIT/ML 3ML SQ SCH ×7 (07:30→21:49)
[2020-06-26] MEDS: ACETYLCYSTEINE 600 MG CAPSULE PO SCH ×2 (09:00→21:00)
[2020-06-26] MEDS: ZINC SULFATE 220 CAPSULE PO SCH (09:13)
[2020-06-26] MEDS: DOXYCYCLINE HYCLATE 100 MG TABLET PO SCH ×2 (09:13→21:43)
[2020-06-26] MEDS: BENZONATATE 100 MG CAPSULE PO SCH ×3 (09:13→21:42)
[2020-06-26] MEDS: ASCORBIC ACID 500 MG TAB PO SCH (09:13)
[2020-06-26] MEDS: ASPIRIN 325 MG TABLET PO SCH (09:13)
[2020-06-26] MEDS: DEXAMETHASONE SOD PHOSPHATE 4 MG/ML 1ML VIAL IVP SCH (09:14)
[2020-06-26] MEDS: ENOXAPARIN SODIUM 40 MG/0.4 ML SYRINGE SQ SCH (09:14)
[2020-06-26] MEDS: REMDESIVIR (EUA) 520 100 MG in SODIUM CHLORIDE 0.9% 250 ML IV SCH (11:45)
[2020-06-26] MEDS ORDERED: SODIUM CHLORIDE 0.9% 50 ML IV ONE (13:43)
--- NOTE | 2020-06-26 15:50 | NUR ---
RESTING IN BED WITH EYES CLOSED, RESP.'S EVEN AND UNLABORED. HOB AT 30 DEGREES. HIGH FLOW AND NRB IN PLACE. O2 SAT-96%, P-90, PER CONTINUOUS PULSE OXIMETER AT BEDSIDE. CALL LIGHT WITHIN REACH.
[2020-06-26] MEDS: AZITHROMYCIN 500MG+NS 250ML 250 ML IV SCH (21:42)
[2020-06-26] MEDS: INSULIN GLARGINE 100 UNITS/ML 10 ML VIAL SQ SCH (21:48)
[2020-06-26] MEDS: ENOXAPARIN SODIUM 80 MG/0.8 ML SQ SCH (21:50)
[2020-06-27 04:17] VITALS: BP 111/64
[2020-06-27] MEDS: INSULIN LISPRO 100 UNIT/ML 3ML SQ SCH ×7 (05:41→22:04)
[2020-06-27 05:54] LABS: BASOPHILS % (AUTO) 0.1 % (0.0-5.0); EOSINOPHILS % (AUTO) 0.7 % (0.0-8.0); HEMATOCRIT 38.8 % (42-54); LYMPHOCYTES % (AUTO) 3.2 % (21.0-51.0); MEAN CORPUSCULAR HEMOGLOBIN 29.7 pg (27.0-33.0); MEAN CORPUSCULAR HGB CONC 33.2 g/dL (32.0-36.0); MEAN CORPUSCULAR VOLUME 89.4 fL (79-99); MONOCYTES % (AUTO) 2.4 % (3.0-13.0); NEUTROPHILS % (AUTO) 92.7 % (40.0-77.0); PLATELET COUNT (AUTO) 449 K/uL (130-400); RED BLOOD CELL COUNT(AUTO) 4.34 MIL/uL (4.50-6.20); RED CELL DISTRIBUTION WIDTH 13.2 % (11.0-15.5); WHITE BLOOD COUNT (AUTO) 19.5 K/uL (4.8-10.8)
[2020-06-27] MEDS: PHARMACY COMMUNICATION MISC SCH (06:00)
[2020-06-27 06:29] LABS: ALBUMIN 1.9 g/dL (3.5-5.0); BILIRUBIN,DIRECT 0.4 mg/dL (0.0-0.3); CREATININE 1.1 mg/dL (0.5-1.5); MAGNESIUM 2.2 mg/dL (1.80-2.40); PHOSPHORUS 2.8 mg/dL (2.5-4.9); POTASSIUM 4.4 mmol/L (3.5-5.1); TOTAL PROTEIN, SERUM 6.8 g/dL (6.0-8.3)
[2020-06-27 06:41] LABS: CRP QUANTITATIVE 174.5 mg/L (0.00-9.0)
[2020-06-27 08:00] VITALS: BP 103/56
[2020-06-27] MEDS: ASCORBIC ACID 500 MG TAB PO SCH (08:27)
[2020-06-27] MEDS: DOXYCYCLINE HYCLATE 100 MG TABLET PO SCH ×2 (08:27→21:44)
[2020-06-27] MEDS: BENZONATATE 100 MG CAPSULE PO SCH ×3 (08:28→21:44)
[2020-06-27] MEDS: ASPIRIN 325 MG TABLET PO SCH (08:28)
[2020-06-27] MEDS: ZINC SULFATE 220 CAPSULE PO SCH (08:29)
[2020-06-27] MEDS: DEXAMETHASONE SOD PHOSPHATE 4 MG/ML 1ML VIAL IVP SCH (08:31)
[2020-06-27] MEDS: ENOXAPARIN SODIUM 80 MG/0.8 ML SQ SCH ×2 (08:31→21:45)
[2020-06-27] MEDS: METHYLPREDNISOLONE SOD SUCC 125MG/2ML VIAL IVP SCH ×3 (10:39→21:45)
[2020-06-27 11:30] VITALS: BP 111/67
[2020-06-27] MEDS: REMDESIVIR (EUA) 520 100 MG in SODIUM CHLORIDE 0.9% 250 ML IV SCH (12:13)
[2020-06-27 15:30] VITALS: BP 106/65
[2020-06-27 20:30] VITALS: BP 110/68
[2020-06-27] MEDS: ACETYLCYSTEINE 20% 200MG/ML 4ML VIAL PO SCH (21:44)
[2020-06-27] MEDS: AZITHROMYCIN 500MG+NS 250ML 250 ML IV SCH (21:45)
[2020-06-27] MEDS: INSULIN GLARGINE 100 UNITS/ML 10 ML VIAL SQ SCH (22:03)
[2020-06-28] VITALS (8 sets, daily range): BP systolic 115–139; BP diastolic 51–78
[2020-06-28] MEDS: METHYLPREDNISOLONE SOD SUCC 125MG/2ML VIAL IVP SCH ×4 (02:52→19:24)
[2020-06-28] MEDS: PHARMACY COMMUNICATION MISC SCH (05:55)
[2020-06-28 06:01] LABS: BASOPHILS % (AUTO) 0.1 % (0.0-5.0); HEMATOCRIT 37.2 % (42-54); LYMPHOCYTES % (AUTO) 2.5 % (21.0-51.0); MEAN CORPUSCULAR HEMOGLOBIN 29.6 pg (27.0-33.0); MEAN CORPUSCULAR HGB CONC 33.1 g/dL (32.0-36.0); MEAN CORPUSCULAR VOLUME 89.4 fL (79-99); MONOCYTES % (AUTO) 2.2 % (3.0-13.0); NEUTROPHILS % (AUTO) 94.4 % (40.0-77.0); PLATELET COUNT (AUTO) 456 K/uL (130-400); RED BLOOD CELL COUNT(AUTO) 4.16 MIL/uL (4.50-6.20); RED CELL DISTRIBUTION WIDTH 13.2 % (11.0-15.5); WHITE BLOOD COUNT (AUTO) 14.4 K/uL (4.8-10.8)
[2020-06-28] MEDS: INSULIN LISPRO 100 UNIT/ML 3ML SQ SCH ×7 (06:28→20:51)
[2020-06-28 06:34] LABS: ALBUMIN 1.8 g/dL (3.5-5.0); BILIRUBIN,TOTAL 0.7 mg/dL (0.2-1.0); CREATININE 1.1 mg/dL (0.5-1.5); POTASSIUM 4.3 mmol/L (3.5-5.1); TOTAL PROTEIN, SERUM 6.7 g/dL (6.0-8.3)
[2020-06-28] MEDS: ASCORBIC ACID 500 MG TAB PO SCH (08:29)
[2020-06-28] MEDS: ACETYLCYSTEINE 20% 200MG/ML 4ML VIAL PO SCH ×2 (08:29→19:25)
[2020-06-28] MEDS: ASPIRIN 325 MG TABLET PO SCH (08:29)
[2020-06-28] MEDS: DOXYCYCLINE HYCLATE 100 MG TABLET PO SCH ×2 (08:29→19:28)
[2020-06-28] MEDS: ZINC SULFATE 220 CAPSULE PO SCH (08:29)
[2020-06-28] MEDS: ENOXAPARIN SODIUM 80 MG/0.8 ML SQ SCH ×2 (08:35→19:25)
[2020-06-28] MEDS: BENZONATATE 100 MG CAPSULE PO SCH ×3 (08:35→19:25)
[2020-06-28] MEDS: REMDESIVIR (EUA) 520 100 MG in SODIUM CHLORIDE 0.9% 250 ML IV SCH (14:54)
--- NOTE | 2020-06-28 16:45 | NUR ---
RD FOLLOW UP Pt tolerating Heart Healthy, 60gm CCD with no report of GI distress, Good PO intake as per RN. Pt LBM recorded for 06/22. 60mL ProMod BID in place. 1L Fluid restriction in place. Recommend stool softener/laxative as medically feasible Recommend Glucerna QD. RD to continue to monitor. Please notify as additional nutrition concerns arise. Thank you.
[2020-06-28] MEDS: AZITHROMYCIN 500MG+NS 250ML 250 ML IV SCH (19:24)
[2020-06-28] MEDS: INSULIN GLARGINE 100 UNITS/ML 10 ML VIAL SQ SCH (20:52)
[2020-06-29 03:00] VITALS: BP 117/73
[2020-06-29] MEDS: METHYLPREDNISOLONE SOD SUCC 125MG/2ML VIAL IVP SCH ×4 (03:54→20:20)
[2020-06-29 05:32] LABS: CRP QUANTITATIVE 101.9 mg/L (0.00-9.0)
[2020-06-29] MEDS: INSULIN LISPRO 100 UNIT/ML 3ML SQ SCH ×7 (06:14→20:06)
[2020-06-29 06:34] LABS: BASOPHILS % (AUTO) 0.2 % (0.0-5.0); HEMATOCRIT 38.9 % (42-54); LYMPHOCYTES % (AUTO) 2.5 % (21.0-51.0); MEAN CORPUSCULAR HEMOGLOBIN 29.7 pg (27.0-33.0); MEAN CORPUSCULAR HGB CONC 33.4 g/dL (32.0-36.0); MEAN CORPUSCULAR VOLUME 88.8 fL (79-99); MONOCYTES % (AUTO) 5.9 % (3.0-13.0); NEUTROPHILS % (AUTO) 90.1 % (40.0-77.0); PLATELET COUNT (AUTO) 589 K/uL (130-400); RED BLOOD CELL COUNT(AUTO) 4.38 MIL/uL (4.50-6.20); RED CELL DISTRIBUTION WIDTH 13.1 % (11.0-15.5); WHITE BLOOD COUNT (AUTO) 17.9 K/uL (4.8-10.8)
[2020-06-29 06:44] LABS: ALBUMIN 1.8 g/dL (3.5-5.0); BILIRUBIN,TOTAL 0.8 mg/dL (0.2-1.0); POTASSIUM 3.9 mmol/L (3.5-5.1)
[2020-06-29 08:00] VITALS: BP 133/71
[2020-06-29] MEDS: ENOXAPARIN SODIUM 80 MG/0.8 ML SQ SCH (08:19)
[2020-06-29] MEDS: ASPIRIN 325 MG TABLET PO SCH (08:19)
[2020-06-29] MEDS: BENZONATATE 100 MG CAPSULE PO SCH ×3 (08:20→20:20)
[2020-06-29] MEDS: DOXYCYCLINE HYCLATE 100 MG TABLET PO SCH ×2 (08:20→20:20)
[2020-06-29] MEDS: ZINC SULFATE 220 CAPSULE PO SCH (08:20)
[2020-06-29] MEDS: ASCORBIC ACID 500 MG TAB PO SCH (08:20)
[2020-06-29] MEDS: ACETYLCYSTEINE 20% 200MG/ML 4ML VIAL PO SCH ×2 (08:30→20:20)
[2020-06-29 11:30] VITALS: BP 124/72
[2020-06-29 15:30] VITALS: BP 142/80
[2020-06-29 20:10] VITALS: BP 121/68
[2020-06-29] MEDS: AZITHROMYCIN 500MG+NS 250ML 250 ML IV SCH (20:20)
[2020-06-29] MEDS: INSULIN GLARGINE 100 UNITS/ML 10 ML VIAL SQ SCH (20:21)
[2020-06-29 23:27] VITALS: BP 126/72
[2020-06-30] VITALS (54 sets, daily range): BP systolic 62–150; BP diastolic 40–81
[2020-06-30] MEDS: METHYLPREDNISOLONE SOD SUCC 125MG/2ML VIAL IVP SCH ×3 (03:03→15:00)
[2020-06-30] MEDS: INSULIN LISPRO 100 UNIT/ML 3ML SQ SCH ×7 (06:10→21:00)
[2020-06-30 06:13] LABS: BASOPHILS % (AUTO) 0.1 % (0.0-5.0); HEMATOCRIT 36.4 % (42-54); MEAN CORPUSCULAR HEMOGLOBIN 30.3 pg (27.0-33.0); MEAN CORPUSCULAR HGB CONC 34.3 g/dL (32.0-36.0); MEAN CORPUSCULAR VOLUME 88.3 fL (79-99); MONOCYTES % (AUTO) 5.1 % (3.0-13.0); NEUTROPHILS % (AUTO) 92.2 % (40.0-77.0); PLATELET COUNT (AUTO) 521 K/uL (130-400); RED BLOOD CELL COUNT(AUTO) 4.12 MIL/uL (4.50-6.20); RED CELL DISTRIBUTION WIDTH 12.9 % (11.0-15.5); WHITE BLOOD COUNT (AUTO) 16.7 K/uL (4.8-10.8)
[2020-06-30 06:30] LABS: CREATININE 0.9 mg/dL (0.5-1.5); CRP QUANTITATIVE 93.7 mg/L (0.00-9.0)
--- NOTE | 2020-06-30 07:20 | NUR ---
POX DROP Patient POX dropped to 70'S-80'S after adjusting position in bed. Pt on 30% Highflow and NRB 100% setting adjusted to 40/100 with no change. RT notified pt setting readjusted up to 60/100, patient put on prone position. P0X went up to 95%, HR 113. Pt tolerating Prone position well at NAD noted.
[2020-06-30] MEDS: BENZONATATE 100 MG CAPSULE PO SCH ×4 (09:00→21:00)
[2020-06-30] MEDS: ACETYLCYSTEINE 20% 200MG/ML 4ML VIAL PO SCH ×3 (09:00→21:00)
[2020-06-30] MEDS: ASPIRIN 325 MG TABLET PO SCH ×2 (09:00→10:00)
[2020-06-30] MEDS: ZINC SULFATE 220 CAPSULE PO SCH ×2 (09:00→10:01)
[2020-06-30] MEDS: DOXYCYCLINE HYCLATE 100 MG TABLET PO SCH ×2 (09:00→10:01)
[2020-06-30] MEDS: ENOXAPARIN SODIUM 80 MG/0.8 ML SQ SCH (10:00)
[2020-06-30] MEDS: ASCORBIC ACID 500 MG TAB PO SCH (10:01)
[2020-06-30] MEDS: ACETAMINOPHEN 325 MG TAB PO PRN (10:03)
--- NOTE | 2020-06-30 12:30 | NUR ---
Status Change Pt vitals still unstable. POX 70's to 80's highest of 86's. Pt PO medication held.Patient switched over to CPAP per MD orders.
--- NOTE | 2020-06-30 12:43 | NUR ---
Pt respiratory status change, Unable to sustain POX of 86% Addendum: 06/30/20 at 1244 by ROSALBA BECKFORD RN RN Amended: Links added.
[2020-06-30] MEDS ORDERED: FUROSEMIDE 10 MG/ML 4ML VIAL ONE (13:39)
[2020-06-30] MEDS ORDERED: FUROSEMIDE 10 MG/ML 2ML VIAL IV SCH (13:45)
[2020-06-30] MEDS ORDERED: MIDAZOLAM HCL 1 MG/ML 2ML VIAL ONE (14:04)
[2020-06-30] MEDS ORDERED: PROPOFOL 1000 MG/100 ML 100 ML IV ONE (14:18)
[2020-06-30] MEDS ORDERED: FENTANYL 2500MCG+NS 250ML 250 ML IV ONE (14:21)
--- NOTE | 2020-06-30 14:23 | NUR ---
ICU TRANSFER pt deteriorated, POX70's to 80's on CPAP and BIPAP. Dr Juarez Notified.Orders given to Intubate and transfer to ICU 1320:CARPORT ERECTOR notified of patient change of status. Family notified by CARPORT ERECTOR of patient current situation Intubated @1400 b FIELD OPERATIONS SUPERVISOR Transferred to ICU, report given to ICU nurse
[2020-06-30 15:31] LABS: ABG BASE EXCESS -3.5 mmol/L (-2.0-3.0); ABG HCO3 22.3 mmol/L (21.0-28.0); ABG PCO2 43 mmHg (35-48)
[2020-06-30] MEDS ORDERED: NOREPINEPHRINE 4MG/NS 250ML 250 ML IV PRN (15:45)
[2020-06-30] MEDS ORDERED: PROPOFOL 1000 MG/100 ML 100 ML IV PRN (15:45)
--- NOTE | 2020-06-30 15:45 | NUR ---
RECEIVING NOTE RECEIVED PT INTUBATED AND AGITATED. CAPTAIN/AIRLINE PILOT AT BEDSIDE FOR SEDATION ORDERS. ATTEMPTING TO MAINTAIN SATS > 88%. PT CALMER AFTER 2 PROPOFOL BOLUSES. DAUGHTER AND GRANDSON CONSENTED FOR CENTRAL LINE AND ARTERIAL LINE. THEY VERBALIZED UNDERSTANDING. ALL QUESTIONS ANSWERED. NEW STAT ORDERS RECEIVED FROM SALMA MASSEY. PRONE SOON LINES ARE IN. WILL CONTINUE TO MONITOR.
[2020-06-30 17:12] LABS: ABG BASE EXCESS -7.1 mmol/L (-2.0-3.0); ABG HCO3 20.4 mmol/L (21.0-28.0); ABG OXYGEN SATURATION 91.9 % (95.0-99.0); ABG PCO2 48 mmHg (35-48)
[2020-06-30] MEDS ORDERED: PHENYLEPHRINE HCL 10 MG/ML 1ML VIAL IV ONE (17:28)
[2020-06-30] MEDS ORDERED: SODIUM CHLORIDE 0.9% 250 ML IV ONE (17:29)
[2020-06-30] MEDS ORDERED: ROCURONIUM BROMIDE 250 MG in SODIUM CHLORIDE 0.9% 250 ML IV SCH (18:30)
[2020-06-30] MEDS ORDERED: SODIUM CHLORIDE 0.9% 500ML 500 ML IV ONE (20:57)
[2020-06-30] MEDS: AZITHROMYCIN 500MG+NS 250ML 250 ML IV SCH (21:00)
[2020-06-30] MEDS: INSULIN GLARGINE 100 UNITS/ML 10 ML VIAL SQ SCH (21:00)
[2020-06-30] MEDS ORDERED: NOREPINEPHRINE BITARTRATE 32 MG in SODIUM CHLORIDE 0.9% 250 ML IV SCH (21:15)
[2020-07-01] VITALS (91 sets, daily range): BP systolic 47–149; BP diastolic 31–67
[2020-07-01 00:25] LABS: ABG PCO2 58 mmHg (35-48)
[2020-07-01 04:59] LABS: BASOPHILS % (AUTO) 0.1 % (0.0-5.0); HEMATOCRIT 31.6 % (42-54); LYMPHOCYTES % (AUTO) 3.6 % (21.0-51.0); MEAN CORPUSCULAR HEMOGLOBIN 30.1 pg (27.0-33.0); MEAN CORPUSCULAR HGB CONC 32.6 g/dL (32.0-36.0); MEAN CORPUSCULAR VOLUME 92.4 fL (79-99); MONOCYTES % (AUTO) 2.2 % (3.0-13.0); NEUTROPHILS % (AUTO) 93.4 % (40.0-77.0); PLATELET COUNT (AUTO) 441 K/uL (130-400); RED BLOOD CELL COUNT(AUTO) 3.42 MIL/uL (4.50-6.20); RED CELL DISTRIBUTION WIDTH 13.3 % (11.0-15.5); WHITE BLOOD COUNT (AUTO) 19.1 K/uL (4.8-10.8)
[2020-07-01 05:02] LABS: ABG BASE EXCESS -0.4 mmol/L (-2.0-3.0); ABG HCO3 25.6 mmol/L (21.0-28.0); ABG OXYGEN SATURATION 94.8 % (95.0-99.0); ABG PCO2 47 mmHg (35-48)
[2020-07-01 05:31] LABS: CREATININE 1.4 mg/dL (0.5-1.5); CRP QUANTITATIVE 151.7 mg/L (0.00-9.0); POTASSIUM 4.6 mmol/L (3.5-5.1)
[2020-07-01] MEDS: DEXMEDETOMIDINE HCL 400 MCG in SODIUM CHLORIDE 0.9% 100 ML IV SCH ×2 (06:41→13:08)
[2020-07-01] MEDS: CISATRACURIUM BESYLATE 100 MG in SODIUM CHLORIDE 0.9% 100 ML IV SCH ×2 (06:41→09:50)
[2020-07-01] MEDS: MIDAZOLAM 100MG-0.9% NS 100ML 100ML BAG IV PRN ×2 (06:42→13:08)
[2020-07-01] MEDS: FENTANYL 2500MCG+NS 250ML 250 ML IV PRN (06:42)
[2020-07-01] MEDS: PHENYLEPHRINE HCL 50 MG in SODIUM CHLORIDE 0.9% 250 ML IV PRN (06:43)
[2020-07-01] MEDS: INSULIN LISPRO 100 UNIT/ML 3ML SQ SCH ×7 (06:44→21:00)
[2020-07-01] MEDS ORDERED: DEXTROSE 50%-WATER 50 ML DISP.SYRIN IV ONE (06:54)
[2020-07-01] MEDS: BENZONATATE 100 MG CAPSULE PO SCH ×2 (09:00→14:00)
[2020-07-01] MEDS: ACETYLCYSTEINE 20% 200MG/ML 4ML VIAL PO SCH ×2 (09:00→21:00)
[2020-07-01] MEDS: ZINC SULFATE 220 CAPSULE PO SCH (09:50)
[2020-07-01] MEDS: ASPIRIN 325 MG TABLET PO SCH (09:50)
[2020-07-01] MEDS: ASCORBIC ACID 500 MG TAB PO SCH (09:50)
[2020-07-01] MEDS: DEXAMETHASONE SOD PHOSPHATE 4 MG/ML 1ML VIAL IVP SCH (09:50)
[2020-07-01] MEDS: ENOXAPARIN SODIUM 80 MG/0.8 ML SQ SCH (09:51)
--- NOTE | 2020-07-01 10:09 | NUR ---
RD FOLLOW UP/ NOTIFICATION FOR INTUBATION Tube feeding recommendations for Continuous Vital AF 1.2 initiated at 15mls/hr for 10 hours. Adv to goal of 35 as tolerated. Recommend flushes of 100mls Q4hrs. RECOMMENDATIONS FAXED TO 2B (7639), ATTEMPT TO NOTIFY POD B & CV - NO ANSWER. RD TO FOLLOW UP.
[2020-07-01] MEDS ORDERED: ADENOSINE 3 MG/ML 2ML VIAL IV ONE (16:02)
[2020-07-01] MEDS: ACETAMINOPHEN 325 MG TAB PO PRN (17:23)
[2020-07-01] MEDS: INSULIN GLARGINE 100 UNITS/ML 10 ML VIAL SQ SCH (21:00)
[2020-07-01] MEDS: AZITHROMYCIN 500MG+NS 250ML 250 ML IV SCH (21:00)
[2020-07-02] VITALS (88 sets, daily range): BP systolic 31–153; BP diastolic 20–67
[2020-07-02] MEDS ORDERED: PHENYLEPHRINE HCL 10 MG/ML 1ML VIAL IV ONE (01:36)
[2020-07-02] MEDS: CISATRACURIUM BESYLATE 100 MG in SODIUM CHLORIDE 0.9% 100 ML IV SCH ×2 (02:28→09:19)
[2020-07-02] MEDS: DEXMEDETOMIDINE HCL 400 MCG in SODIUM CHLORIDE 0.9% 100 ML IV SCH ×4 (02:29→23:02)
[2020-07-02] MEDS: MIDAZOLAM 100MG-0.9% NS 100ML 100ML BAG IV PRN ×2 (02:29→11:52)
[2020-07-02] MEDS: ACETAMINOPHEN 325 MG TAB PO PRN ×4 (02:30→15:51)
[2020-07-02] MEDS: FENTANYL 2500MCG+NS 250ML 250 ML IV PRN ×2 (02:30→23:02)
[2020-07-02] MEDS: INSULIN LISPRO 100 UNIT/ML 3ML SQ SCH ×6 (07:30→17:00)
[2020-07-02 08:06] LABS: BASOPHILS % (AUTO) 0.1 % (0.0-5.0); HEMATOCRIT 34.4 % (42-54); LYMPHOCYTES % (AUTO) 5.2 % (21.0-51.0); MEAN CORPUSCULAR HGB CONC 31.7 g/dL (32.0-36.0); MEAN CORPUSCULAR VOLUME 94.8 fL (79-99); MONOCYTES % (AUTO) 2.8 % (3.0-13.0); NEUTROPHILS % (AUTO) 91.3 % (40.0-77.0); PLATELET COUNT (AUTO) 280 K/uL (130-400); RED BLOOD CELL COUNT(AUTO) 3.63 MIL/uL (4.50-6.20); WHITE BLOOD COUNT (AUTO) 18.9 K/uL (4.8-10.8)
[2020-07-02 08:42] LABS: ALBUMIN 1.5 g/dL (3.5-5.0); BILIRUBIN,TOTAL 0.9 mg/dL (0.2-1.0); CREATININE 1.9 mg/dL (0.5-1.5); POTASSIUM 5.4 mmol/L (3.5-5.1); TOTAL PROTEIN, SERUM 5.3 g/dL (6.0-8.3)
[2020-07-02] MEDS: ENOXAPARIN SODIUM 80 MG/0.8 ML SQ SCH (09:00)
[2020-07-02] MEDS: ZINC SULFATE 220 CAPSULE PO SCH (09:19)
[2020-07-02] MEDS: ASPIRIN 325 MG TABLET PO SCH (09:19)
[2020-07-02] MEDS: DEXAMETHASONE SOD PHOSPHATE 4 MG/ML 1ML VIAL IVP SCH (09:19)
[2020-07-02] MEDS: ASCORBIC ACID 500 MG TAB PO SCH (09:19)
[2020-07-02] MEDS: PHENYLEPHRINE HCL 50 MG in SODIUM CHLORIDE 0.9% 250 ML IV PRN ×2 (09:21→15:02)
[2020-07-02] MEDS: MEROPENEM 1 GM VIAL IVP SCH (13:30)
[2020-07-02] MEDS ORDERED: CISATRACURIUM BESYLATE 200 MG in SODIUM CHLORIDE 0.9% 180 ML IV SCH (14:00)
[2020-07-02] MEDS: LINEZOLID 600 MG/ISO-OSM 300 ML IV SCH (15:00)
[2020-07-02] MEDS ORDERED: INSULIN GLARGINE 100 UNITS/ML 10 ML VIAL SQ SCH (21:00)
[2020-07-02] MEDS: INSULIN GLARGINE 100 UNITS/ML 10 ML VIAL SQ SCH (21:00)
[2020-07-02] MEDS: AZITHROMYCIN 500MG+NS 250ML 250 ML IV SCH (22:07)
[2020-07-03] VITALS (71 sets, daily range): BP systolic 74–133; BP diastolic 47–70
[2020-07-03] MEDS: LINEZOLID 600 MG/ISO-OSM 300 ML IV SCH ×2 (00:04→13:39)
[2020-07-03] MEDS: MEROPENEM 1 GM VIAL IVP SCH ×2 (01:30→13:30)
[2020-07-03 03:40] LABS: ABG BASE EXCESS -16.1 mmol/L (-2.0-3.0); ABG HCO3 18.7 mmol/L (21.0-28.0); ABG OXYGEN SATURATION 96.2 % (95.0-99.0); ABG PCO2 96 mmHg (35-48)
[2020-07-03 03:41] LABS: BASOPHILS % (AUTO) 0.2 % (0.0-5.0); EOSINOPHILS % (AUTO) 0.2 % (0.0-8.0); HEMATOCRIT 27.5 % (42-54); LYMPHOCYTES % (AUTO) 8.1 % (21.0-51.0); MEAN CORPUSCULAR HEMOGLOBIN 32.8 pg (27.0-33.0); MEAN CORPUSCULAR HGB CONC 31.6 g/dL (32.0-36.0); MEAN CORPUSCULAR VOLUME 103.8 fL (79-99); MONOCYTES % (AUTO) 7.2 % (3.0-13.0); NEUTROPHILS % (AUTO) 81.3 % (40.0-77.0); NUCLEATED RED BLOOD CELLS 0.2 % (0.0-0.19); PLATELET COUNT (AUTO) 251 K/uL (130-400); RED BLOOD CELL COUNT(AUTO) 2.65 MIL/uL (4.50-6.20); RED CELL DISTRIBUTION WIDTH 18.2 % (11.0-15.5); WHITE BLOOD COUNT (AUTO) 10.1 K/uL (4.8-10.8)
[2020-07-03] MEDS ORDERED: SODIUM BICARB 50MEQ 50ML VIAL ONE (03:48)
[2020-07-03 03:58] LABS: ALBUMIN 2.1 g/dL (3.5-5.0); BILIRUBIN,TOTAL 0.5 mg/dL (0.2-1.0); PHOSPHORUS 3.5 mg/dL (2.5-4.9); POTASSIUM 4.3 mmol/L (3.5-5.1); TOTAL PROTEIN, SERUM 6.2 g/dL (6.0-8.3)
[2020-07-03 04:05] LABS: CREATININE 0.5 mg/dL (0.5-1.5)
--- NOTE | 2020-07-03 04:54 | NUR ---
NOTIFIED OF ABG RESULTS GAVE ORDERS. NOTIFIED RESP OF VENT CHANGES TO INCREASE VT TO 550 AND DECREASE PEEP FROM 10 TO 6.
[2020-07-03 07:26] LABS: ABG BASE EXCESS -12.8 mmol/L (-2.0-3.0); ABG HCO3 14.9 mmol/L (21.0-28.0); ABG OXYGEN SATURATION 92.2 % (95.0-99.0); ABG PCO2 40 mmHg (35-48)
[2020-07-03] MEDS: INSULIN LISPRO 100 UNIT/ML 3ML SQ SCH ×4 (07:30→13:29)
[2020-07-03] MEDS ORDERED: PHENYLEPHRINE HCL 10 MG/ML 1ML VIAL IV ONE (07:47)
[2020-07-03] MEDS ORDERED: SODIUM CHLORIDE 0.9% 250 ML IV ONE (07:48)
[2020-07-03] MEDS: ASPIRIN 325 MG TABLET PO SCH (08:56)
[2020-07-03] MEDS: ZINC SULFATE 220 CAPSULE PO SCH (08:56)
[2020-07-03] MEDS: DEXAMETHASONE SOD PHOSPHATE 4 MG/ML 1ML VIAL IVP SCH (08:56)
[2020-07-03] MEDS: ASCORBIC ACID 500 MG TAB PO SCH (08:56)
[2020-07-03] MEDS: ENOXAPARIN SODIUM 80 MG/0.8 ML SQ SCH (08:57)
--- NOTE | 2020-07-03 10:30 | NUR ---
PRONE PRONED AT 1030AM. PT TOLERATED WELL. NAD NOTED. CONTINUE PRESENT ORDERS.
[2020-07-03] MEDS: DEXMEDETOMIDINE HCL 400 MCG in SODIUM CHLORIDE 0.9% 100 ML IV SCH (11:13)
[2020-07-03] MEDS: PHENYLEPHRINE 100 MG/NS 250ML IV SCH ×2 (11:16)
[2020-07-03] MEDS: MIDAZOLAM 100MG-0.9% NS 100ML 100ML BAG IV PRN (16:43)
--- NOTE | 2020-07-03 17:45 | NUR ---
HYPERGLYCEMIA NOTIFIED OF ELEVATED GLUCOSE. START INSUIN DRIP LORRAINE. ALSO NO FURTHER ACTION OR MONITORING ON ABG. WILL CONTINUE TO MONITOR.
[2020-07-03] MEDS ORDERED: INSULIN REGULAR, HUMAN 3ML 100 UNIT in SODIUM CHLORIDE 0.9% 99 ML IV PRN ×2 (18:00)
[2020-07-03] MEDS: SODIUM CHLORIDE 0.9% 1000ML 1,000 ML IV ONE ×2 (21:01→22:53)
[2020-07-03] MEDS ORDERED: SODIUM CHLORIDE 0.9% 500ML 1,000 ML IV SCH (23:15)
[2020-07-04] VITALS (25 sets, daily range): BP systolic 67–93; BP diastolic 45–52
[2020-07-04] MEDS: MEROPENEM 1 GM VIAL IVP SCH (01:23)
[2020-07-04] MEDS: LINEZOLID 600 MG/ISO-OSM 300 ML IV SCH (01:58)
[2020-07-04] MEDS ORDERED: HYDROCORTISONE SOD SUCCINATE 100 MG/2 ML VIAL IM SCH (02:00)
[2020-07-04] MEDS ORDERED: HYDROCORTISONE SOD SUCCINATE 100 MG/2 ML VIAL ONE (02:01)
--- NOTE | 2020-07-04 04:54 | NUR ---
NOTIFIED DR. ARAIZA OF HR CHANGES AND BLOOD PRESSURE. ORDERS RECEIVED.
[2020-07-04] MEDS ORDERED: INSULIN HUMULIN R 100 UNIT/ML 3ML ONE (05:09)
--- NOTE | 2020-07-04 05:56 | NUR ---
NOTIFIED DR. ARAIZA OF CHANGES ON CXR SHOWING WHITE SPACE IN LUNG AREA, INCREASED HEART RATE, DECREASED B/P AND MAXING OUT PRESSERS. ALSO MENTIONED NOTED NECK CREPITUS NEAR CENTRAL LINE.
[2020-07-04] MEDS: PHENYLEPHRINE 100 MG/NS 250ML IV SCH ×2 (07:15)
[2020-07-04] MEDS: DEXMEDETOMIDINE HCL 400 MCG in SODIUM CHLORIDE 0.9% 100 ML IV SCH (07:15)
[2020-07-04] MEDS: FENTANYL 2500MCG+NS 250ML 250 ML IV PRN (07:15)
[2020-07-04] MEDS: MIDAZOLAM 100MG-0.9% NS 100ML 100ML BAG IV PRN (07:16)
--- NOTE | 2020-07-04 07:32 | NUR ---
UPDATED NEW ONCOMING NURSE.
--- NOTE | 2020-07-04 08:36 | NUR ---
Elevated HR and low BP Notified MD regarding continued elevated HR in the 140s and low BP 70s/40s. Also mentioned that pt has possibly aspirated and requested stat CXR. OGT displaced, feeding off and OGT was removed -noted feeding and watering rushing from mouth when attempting to flush OGT tube with water. Informed provider that pt was proned and MAXed on pressors. Pt is still Full Code. Provider took POC number and will attempt to update family regarding current status
[2020-07-04] MEDS ORDERED: HYDROCORTISONE SOD SUCCINATE 100 MG/2 ML VIAL IV SCH (10:00)
[2020-07-04 10:16] LABS: ALBUMIN 0.9 g/dL (3.5-5.0); BILIRUBIN,TOTAL 0.6 mg/dL (0.2-1.0); CREATININE 3.6 mg/dL (0.5-1.5); POTASSIUM 3.9 mmol/L (3.5-5.1)
[2020-07-04] MEDS ORDERED: VASOPRESSIN 40 UNITS in SODIUM CHLORIDE 0.9% 40 ML IV SCH (12:15)
--- NOTE | 2020-07-04 15:30 | NUR ---
Phone Call from Family Received a call from patient's Son, wanting to know information regarding his father,stating"yesterday the nurses called my mother and informed her that my father was doing well and today when she received the call the doctors wanted to disconnect patient from ventilator, since he was not doing well. How can they tell us one day he is doing well and the next he is not. The doctor did not want to talk to me today." I informed the son that I would find out and return the call. I spoke to Dory and Dr. Mccarty via phone on speaker. Dr. Mccarty spoke with the patient's and daughter Jen, plan of care discussed and it was discussed at length about withdrawing patient and at this time the patient became a NO CODE (DNR) and both the and daughter were in agreement with plan and to do comfort care. I returned call to son at and informed him that Dr. Mccarty had already spoken to the and Daughter at length regarding patient and to speak to his mother and daughter regarding decision for DNR NO CODE. Son was appreciative of everything and was grateful for returning phone call.
--- NOTE | 2020-07-04 16:10 | NUR ---
Summoned to Pronounce Apartment Groundskeeper was called to pronounce patient Rod Mitchell in room 213. Findings No apical pulse, pupils fixed and dilated, no corneal reflexes. Patient pronounced on 07/04/2020 at 1605. By Charline Lomeli RN House Supervisor.
--- NOTE | 2020-07-04 17:15 | NUR ---
Pt was extubated at 1421 and no heart rate was detected via monitor at 1424. Time of was pronounced by Negative Assembler at 1605. CN, HS, Attending MD and Consulting MS was notified, along with TOSA- organ and tissue donation denied due to age and related medical dx of COVID. Belongings given to security staff to transfer to family rep waiting in lobby. [place] [facility] [place]
== END 2020-07-04 16:05 | disposition expired | DRG 871 ==
LOC: EDH 19:55 → EDHIP 23:15 → 2AH 06-23 03:25 → 2CV 06-30 14:06
PROVIDERS: ADMIT Internal Medicine; ATTEND Internal Medicine
PROC: XW13325 Transfusion of Convalescent Plasma (Nonautologous) into Peripheral Vein, Percutaneous Approach, New Technology Group 5 (ICD-10-PCS; principal; 2020-06-22)
PROC: XW033E5 Introduction of Remdesivir Anti-infective into Peripheral Vein, Percutaneous Approach, New Technology Group 5 (ICD-10-PCS; 2020-06-22)
PROC: 5A1945Z Respiratory Ventilation, 24-96 Consecutive Hours (ICD-10-PCS; 2020-06-30)
PROC: 0BH17EZ Insertion of Endotracheal Airway into Trachea, Via Natural or Artificial Opening (ICD-10-PCS; 2020-06-30)
DX: A41.89 Other specified sepsis (principal); U07.1 COVID-19; J96.01 Acute respiratory failure with hypoxia; J12.89 Other viral pneumonia; E43 Unspecified severe protein-calorie malnutrition; R65.21 Severe sepsis with septic shock; N17.9 Acute kidney failure, unspecified; E87.2 Acidosis; E22.2 Syndrome of inappropriate secretion of antidiuretic hormone; I10 Essential (primary) hypertension; D64.9 Anemia, unspecified; E11.649 Type 2 diabetes mellitus with hypoglycemia without coma; Z66 Do not resuscitate; Z68.28 Body mass index [BMI] 28.0-28.9, adult; Z86.11 Personal history of tuberculosis; Z90.49 Acquired absence of other specified parts of digestive tract
CPT/HCPCS: 36415; 36430; 36600; 71045; 71275; 80048; 80053; 80076; 81001; 82435; 82728; 82803; 82947; 82948; 83036; 83605; 83615; 83735; 83880; 84100; 84132; 84145; 84295; 84484; 85018; 85025; 85378; 85610; 85730; 86140; 86850; 86900; 86901; 86927; 87040; 87088; 87486; 87581; 87633; 87798; 87804; 93005; 94002; 94003; 94660; G0378; J0153; J0456; J0696; J1100; J1650; J1720; J1815; J1940; J2020; J2185; J2250; J2370; J2704; J2920; J2930; J3010; J3490; J7030; J7040; J7050; J7070; J7608; Q9967; U0003